=== PATIENT | male | born 1940 | race Hispanic/Latino ===

== ENCOUNTER 2020-07-18 18:04 | Inpatient (IN) | payer MEDICARE ==
[~2020-07-18] VITALS: Ht 167.6 cm; Wt 79.8 kg
[~2020-07-18 18:04] MED LIST: ALLO300T2 PO; CINA90TA PO; GABA-529 PO; HYDR-4457 PO; LANT1000 PO; LOSA100T58 PO; LUBI24CA2 PO; ONDA4TAB10 PO; RENAVITE PO; ROPI1TAB13 PO; SERT-438 PO; SEVE800T7 PO; SIMV-43 PO; TAMS0.4C32 PO
[2020-07-18 18:29] LABS: ABG BASE EXCESS -1.3 mmol/L (-2.0-3.0); ABG HCO3 29.3 mmol/L (21.0-28.0); ABG OXYGEN SATURATION 78.2 % (95.0-99.0); ABG PCO2 78 mmHg (35-48)
[2020-07-18] MEDS ORDERED: ASPIRIN 325 MG TABLET ONE (19:50)
[2020-07-18] MEDS ORDERED: ZOSYN 3.375GM+NS 50ML 50 ML IV ONE (19:50)
[2020-07-18 20:02] LABS: BASOPHILS % (AUTO) 0.5 % (0.0-5.0); LYMPHOCYTES % (AUTO) 2.3 % (21.0-51.0); MEAN CORPUSCULAR HEMOGLOBIN 33.7 pg (27.0-33.0); MEAN CORPUSCULAR HGB CONC 30.9 g/dL (32.0-36.0); MEAN CORPUSCULAR VOLUME 109.1 fL (79-99); MONOCYTES % (AUTO) 5.2 % (3.0-13.0); NEUTROPHILS % (AUTO) 90.3 % (40.0-77.0); NUCLEATED RED BLOOD CELLS 0.7 % (0.0-0.19); PLATELET COUNT (AUTO) 196 K/uL (130-400); RED CELL DISTRIBUTION WIDTH 17.2 % (11.0-15.5); WHITE BLOOD COUNT (AUTO) 16.7 K/uL (4.8-10.8)
[2020-07-18 20:26] LABS: ALBUMIN 4.3 g/dL (3.5-5.0); BILIRUBIN,TOTAL 0.8 mg/dL (0.2-1.0); CRP QUANTITATIVE 8.4 mg/L (0.00-9.0); POTASSIUM 4.5 mmol/L (3.5-5.1); TOTAL PROTEIN, SERUM 8.2 g/dL (6.0-8.3)
[2020-07-18 20:26] LABS: HEMATOCRIT 62.2 % (42-54)
[2020-07-18 20:29] LABS: INR 1.13 (0.85-1.15); PROTHROMBIN TIME 12.2 SEC (9.6-11.6)
[2020-07-18 20:31] LABS: PARTIAL THROMBOPLASTIN TIME 28.1 SEC (26.3-35.5)
[2020-07-18] MEDS ORDERED: FUROSEMIDE 40MG VIAL ONE (20:43)
[2020-07-18 20:52] LABS: B-TYPE NATRIURETIC PEPTIDE 624 pg/mL (0-100)
[2020-07-18 21:20] LABS: ABG BASE EXCESS -3.4 mmol/L (-2.0-3.0); ABG HCO3 26.7 mmol/L (21.0-28.0); ABG PCO2 72 mmHg (35-48)
[2020-07-18] MEDS ORDERED: VANCOMYCIN PROTOCOL PER PHARMACY IV SCH (23:30)
[2020-07-18] MEDS ORDERED: ALBUTEROL 0.083% 2.5 MG/3 ML INH IH SCH (23:30)
[2020-07-19] VITALS (8 sets, daily range): BP systolic 104–124; BP diastolic 48–78
[2020-07-19] MEDS ORDERED: ACETAMINOPHEN 325 MG TAB PO PRN ×3 (05:15→13:30)
[2020-07-19] MEDS ORDERED: ZOLPIDEM TARTRATE 5 MG TAB PO PRN (05:15)
[2020-07-19] MEDS: ZOSYN 3.375GM+NS 50ML 50 ML IV SCH ×2 (06:00→16:41)
[2020-07-19] MEDS: ALBUTEROL 0.083% 2.5 MG/3 ML INH IH SCH ×4 (06:00→18:00)
[2020-07-19] MEDS ORDERED: MIDODRINE HCL 5 MG TABLET ONE (06:44)
[2020-07-19] MEDS ORDERED: SEVE800T7 PO (08:22)
[2020-07-19] MEDS ORDERED: CINA90TA PO (08:22)
[2020-07-19] MEDS ORDERED: FOLI1TAB85 PO (08:23)
[2020-07-19] MEDS ORDERED: ALBU8.5H8 IH (08:34)
[2020-07-19] MEDS ORDERED: AEC81 PO (08:34)
[2020-07-19] MEDS ORDERED: FLUT16H NASAL (08:34)
[2020-07-19] MEDS ORDERED: ALBU2.5V2 IH (08:35)
[2020-07-19] MEDS ORDERED: BUSP7.5T7 PO (08:35)
[2020-07-19] MEDS ORDERED: FLUT1BLS3 IH (08:35)
[2020-07-19] MEDS ORDERED: LINA290C PO (08:35)
[2020-07-19] MEDS ORDERED: MIDO10TA PO (08:35)
[2020-07-19] MEDS ORDERED: LEVO500T90 PO (08:35)
[2020-07-19] MEDS ORDERED: CALC-131 PO (08:35)
[2020-07-19] MEDS ORDERED: PANT40TA54 PO (08:35)
[2020-07-19] MEDS ORDERED: CLIN-141 PO (08:35)
[2020-07-19] MEDS ORDERED: CPAP NASAL (08:35)
[2020-07-19] MEDS ORDERED: IPRA0.2S54 IH (08:35)
[2020-07-19] MEDS ORDERED: PRED10TA3 PO (08:35)
[2020-07-19] MEDS ORDERED: MIRT-93 PO (08:35)
[2020-07-19] MEDS ORDERED: NON-FORMULARY MEDICATION 1 EACH (Mirtazapine 30 MG) PO PRN (08:45)
[2020-07-19] MEDS ORDERED: MIDODRINE HCL 5 MG TABLET PO SCH (09:00)
[2020-07-19] MEDS ORDERED: FAMOTIDINE 20MG TAB PO SCH (09:00)
[2020-07-19] MEDS ORDERED: CINACALCET HCL 90 MG PO SCH (09:00)
[2020-07-19] MEDS ORDERED: NON-FORMULARY MEDICATION 1 EACH (Fluticasone/Umeclidin/Vilanter (Trelegy Ellipta 100-62.5- IH SCH (09:00)
[2020-07-19] MEDS ORDERED: BUSPIRONE HCL 7.5 MG PO SCH (09:00)
[2020-07-19] MEDS ORDERED: SEVELAMER CARBONATE PO SCH (09:00)
[2020-07-19] MEDS ORDERED: NON-FORMULARY MEDICATION 1 EACH (Linaclotide (Linzess) 290 MCG) PO SCH (09:00)
[2020-07-19] MEDS ORDERED: NON-FORMULARY MEDICATION 1 EACH (Vit B Cmplx 3/FA/Vit C/Biotin (Rena-Vite Rx Tablet) 1 EAC PO SCH (09:00)
[2020-07-19] MEDS: ENOXAPARIN SODIUM 30 MG/0.3 ML SQ SCH (09:15)
[2020-07-19] MEDS: PANTOPRAZOLE 40 MG TAB DR PO SCH (09:15)
[2020-07-19] MEDS: BUSPIRONE HCL 5 MG TABLET PO SCH (09:15)
[2020-07-19] MEDS: MIDODRINE HCL 5 MG TABLET PO SCH ×3 (09:15→21:50)
[2020-07-19] MEDS: FAMOTIDINE 20MG TAB PO SCH (09:16)
[2020-07-19] MEDS: Vitamin B Complex/Vit C/Folic Acid PO SCH (09:16)
[2020-07-19] MEDS: DEXAMETHASONE SOD PHOSPHATE 4 MG/ML 1ML VIAL IVP SCH ×3 (09:16→21:49)
[2020-07-19] MEDS: VANCOMYCIN 1G/250ML KIT 250 ML IV SCH ×2 (09:16→21:00)
[2020-07-19] MEDS: ASPIRIN 81 MG EC TAB PO SCH (09:16)
[2020-07-19] MEDS ORDERED: LANTHANUM CARBONATE 1000 MG PO SCH (12:00)
[2020-07-19] MEDS: SEVELAMER HCL 800 MG TABLET PO SCH ×2 (12:55→16:41)
[2020-07-19] MEDS ORDERED: LACTULOSE 20 GM/30 ML UDCUP PO PRN (13:30)
[2020-07-19] MEDS: MIRTAZAPINE 15 MG TABLET PO SCH (21:49)
[2020-07-19] MEDS: SIMVASTATIN 20 MG TABLET PO SCH (21:50)
[2020-07-19] MEDS: CINACALCET 30 MG TAB PO SCH (22:08)
[2020-07-19] MEDS ORDERED: DEXTROSE 5%-WATER 1,000 ML IV ONE (23:35)
[2020-07-20 03:45] VITALS: BP 142/64
[2020-07-20 04:03] LABS: HEMATOCRIT 55.6 % (42-54); MEAN CORPUSCULAR HGB CONC 30.6 g/dL (32.0-36.0); NUCLEATED RED BLOOD CELLS 0.2 % (0.0-0.19); RED BLOOD CELL COUNT(AUTO) 5.15 MIL/uL (4.50-6.20); RED CELL DISTRIBUTION WIDTH 17.1 % (11.0-15.5); WHITE BLOOD COUNT (AUTO) 19.8 K/uL (4.8-10.8)
[2020-07-20 04:13] LABS: CREATININE 7.8 mg/dL (0.5-1.5)
[2020-07-20] MEDS: ZOSYN 3.375GM+NS 50ML 50 ML IV SCH ×2 (05:45→17:23)
[2020-07-20] MEDS: ALBUTEROL 0.083% 2.5 MG/3 ML INH IH SCH ×4 (06:00→18:00)
[2020-07-20 07:03] VITALS: BP 133/67
[2020-07-20] MEDS: PANTOPRAZOLE 40 MG TAB DR PO SCH (08:56)
[2020-07-20] MEDS: BUSPIRONE HCL 5 MG TABLET PO SCH (08:56)
[2020-07-20] MEDS: ASPIRIN 81 MG EC TAB PO SCH (08:56)
[2020-07-20] MEDS: Vitamin B Complex/Vit C/Folic Acid PO SCH (08:56)
[2020-07-20] MEDS: DEXAMETHASONE SOD PHOSPHATE 4 MG/ML 1ML VIAL IVP SCH ×3 (08:56→20:21)
[2020-07-20] MEDS: SEVELAMER HCL 800 MG TABLET PO SCH ×3 (08:57→16:19)
[2020-07-20] MEDS: FAMOTIDINE 20MG TAB PO SCH (08:57)
[2020-07-20] MEDS: MIDODRINE HCL 5 MG TABLET PO SCH ×3 (08:57→20:21)
[2020-07-20] MEDS: ENOXAPARIN SODIUM 30 MG/0.3 ML SQ SCH (08:58)
[2020-07-20] MEDS: PYRIDOXINE PO SCH (09:00)
[2020-07-20] MEDS: LANTHANUM CARBONATE 1000 MG PO SCH (09:00)
[2020-07-20] MEDS: VIT B12 PO SCH (09:00)
[2020-07-20] MEDS: CALCIUM PO SCH (09:00)
[2020-07-20] MEDS: (Fluticasone/Umeclidin/Vilanter (Trelegy Ellipta 100-62.5- PO SCH (09:00)
[2020-07-20] MEDS: [UNRECOGNIZED DRUG - OTHER] PO SCH (09:00)
[2020-07-20] MEDS: CINACALCET 30 MG TAB PO SCH ×2 (09:58→20:21)
[2020-07-20] MEDS ORDERED: LACTULOSE 20 GM/30 ML UDCUP PO SCH (10:00)
[2020-07-20 11:36] VITALS: BP 156/81
[2020-07-20] MEDS ORDERED: LACTULOSE 20 GM/30 ML UDCUP PO PRN (11:45)
[2020-07-20 16:15] VITALS: BP 137/65
[2020-07-20 19:35] VITALS: BP 131/55
[2020-07-20] MEDS: MIRTAZAPINE 15 MG TABLET PO SCH (20:21)
[2020-07-20] MEDS: SIMVASTATIN 20 MG TABLET PO SCH (20:22)
[2020-07-20] MEDS: VANCOMYCIN 1G/250ML KIT 250 ML IV SCH (23:30)
[2020-07-20 23:57] VITALS: BP 130/68
[2020-07-21 04:09] VITALS: BP 131/60
[2020-07-21 05:16] LABS: ABG BASE EXCESS -4.1 mmol/L (-2.0-3.0); ABG HCO3 26.9 mmol/L (21.0-28.0); ABG OXYGEN SATURATION 94.1 % (95.0-99.0); ABG PCO2 79 mmHg (35-48)
[2020-07-21] MEDS: ZOSYN 3.375GM+NS 50ML 50 ML IV SCH ×2 (05:59→17:09)
[2020-07-21] MEDS: ALBUTEROL 0.083% 2.5 MG/3 ML INH IH SCH ×4 (06:00→18:00)
[2020-07-21 06:45] LABS: HEMATOCRIT 55.6 % (42-54); MEAN CORPUSCULAR HEMOGLOBIN 32.9 pg (27.0-33.0); MEAN CORPUSCULAR HGB CONC 30.4 g/dL (32.0-36.0); MEAN CORPUSCULAR VOLUME 108.4 fL (79-99); NUCLEATED RED BLOOD CELLS 0.5 % (0.0-0.19); RED BLOOD CELL COUNT(AUTO) 5.13 MIL/uL (4.50-6.20); RED CELL DISTRIBUTION WIDTH 17.2 % (11.0-15.5); WHITE BLOOD COUNT (AUTO) 22.1 K/uL (4.8-10.8)
[2020-07-21 06:52] LABS: CREATININE 6.5 mg/dL (0.5-1.5); PHOSPHORUS 7.8 mg/dL (2.5-4.9)
[2020-07-21 07:22] VITALS: BP 121/62
[2020-07-21] MEDS: [UNRECOGNIZED DRUG - OTHER] PO SCH (07:56)
[2020-07-21] MEDS: CALCIUM PO SCH (07:56)
[2020-07-21] MEDS: PYRIDOXINE PO SCH (07:56)
[2020-07-21] MEDS: VIT B12 PO SCH (07:56)
[2020-07-21] MEDS: LANTHANUM CARBONATE 1000 MG PO SCH (07:57)
[2020-07-21] MEDS: (Fluticasone/Umeclidin/Vilanter (Trelegy Ellipta 100-62.5- PO SCH (07:57)
[2020-07-21] MEDS: SEVELAMER HCL 800 MG TABLET PO SCH ×3 (08:13→17:09)
[2020-07-21] MEDS: PANTOPRAZOLE 40 MG TAB DR PO SCH (08:14)
[2020-07-21] MEDS: DEXAMETHASONE SOD PHOSPHATE 4 MG/ML 1ML VIAL IVP SCH ×3 (08:14→21:17)
[2020-07-21] MEDS: ASPIRIN 81 MG EC TAB PO SCH (08:15)
[2020-07-21] MEDS: MIDODRINE HCL 5 MG TABLET PO SCH ×3 (08:15→21:17)
[2020-07-21] MEDS: Vitamin B Complex/Vit C/Folic Acid PO SCH (08:15)
[2020-07-21] MEDS: ENOXAPARIN SODIUM 30 MG/0.3 ML SQ SCH (08:16)
[2020-07-21] MEDS: CINACALCET 30 MG TAB PO SCH ×2 (09:00→21:18)
[2020-07-21 10:12] LABS: HEPATITIS A ANTIBODY IGM Negative (Negative); HEPATITIS B CORE IGM Negative (Negative); HEPATITIS Bs ANTIGEN SCREEN P Negative (Negative)
[2020-07-21 11:37] VITALS: BP 133/61
[2020-07-21] MEDS ORDERED: BISACODYL 10 MG SUPP.RECT RC SCH (12:00)
[2020-07-21] MEDS ORDERED: BISACODYL 10 MG SUPP.RECT RC PRN (12:00)
[2020-07-21] MEDS ORDERED: LORAZEPAM 2 MG/ML 1 ML VIAL IVP PRN (12:30)
[2020-07-21 13:44] LABS: ABG BASE EXCESS -5.4 mmol/L (-2.0-3.0); ABG HCO3 25.1 mmol/L (21.0-28.0); ABG OXYGEN SATURATION 94.7 % (95.0-99.0); ABG PCO2 73 mmHg (35-48)
[2020-07-21 16:38] VITALS: BP 132/56
[2020-07-21] MEDS: VANCOMYCIN 1G/250ML KIT 250 ML IV SCH (19:38)
[2020-07-21 19:46] VITALS: BP 121/57
[2020-07-21] MEDS ORDERED: LACTULOSE 20 GM/30 ML UDCUP NG SCH (21:00)
[2020-07-21] MEDS: MIRTAZAPINE 15 MG TABLET PO SCH (21:17)
[2020-07-21] MEDS: SIMVASTATIN 20 MG TABLET PO SCH (21:18)
[2020-07-21 23:56] VITALS: BP 141/77
[2020-07-22] MEDS: ALBUTEROL 0.083% 2.5 MG/3 ML INH IH SCH ×4 (03:12→18:28)
[2020-07-22 04:51] LABS: HEMATOCRIT 55.4 % (42-54); MEAN CORPUSCULAR HEMOGLOBIN 32.6 pg (27.0-33.0); MEAN CORPUSCULAR HGB CONC 30.1 g/dL (32.0-36.0); NUCLEATED RED BLOOD CELLS 0.4 % (0.0-0.19); RED BLOOD CELL COUNT(AUTO) 5.13 MIL/uL (4.50-6.20); RED CELL DISTRIBUTION WIDTH 17.2 % (11.0-15.5); WHITE BLOOD COUNT (AUTO) 22.5 K/uL (4.8-10.8)
[2020-07-22 04:57] LABS: ABG BASE EXCESS -6.3 mmol/L (-2.0-3.0); ABG OXYGEN SATURATION 97.4 % (95.0-99.0); ABG PCO2 62 mmHg (35-48)
[2020-07-22 05:02] LABS: MAGNESIUM 3.1 mg/dL (1.80-2.40); POTASSIUM 5.2 mmol/L (3.5-5.1)
[2020-07-22 05:05] LABS: CREATININE 7.9 mg/dL (0.5-1.5)
[2020-07-22] MEDS: ZOSYN 3.375GM+NS 50ML 50 ML IV SCH ×2 (05:48→18:17)
[2020-07-22 07:17] VITALS: BP 125/62
[2020-07-22] MEDS: LANTHANUM CARBONATE 1000 MG PO SCH (09:00)
[2020-07-22] MEDS: PYRIDOXINE PO SCH (09:00)
[2020-07-22] MEDS: CALCIUM PO SCH (09:00)
[2020-07-22] MEDS: (Fluticasone/Umeclidin/Vilanter (Trelegy Ellipta 100-62.5- PO SCH (09:00)
[2020-07-22] MEDS: VIT B12 PO SCH (09:00)
[2020-07-22] MEDS: PANTOPRAZOLE 40 MG TAB DR PO SCH (09:00)
[2020-07-22] MEDS: [UNRECOGNIZED DRUG - OTHER] PO SCH (09:00)
[2020-07-22] MEDS: ASPIRIN 81 MG EC TAB PO SCH (09:54)
[2020-07-22] MEDS: MIDODRINE HCL 5 MG TABLET PO SCH ×2 (09:55→14:07)
[2020-07-22] MEDS: CINACALCET 30 MG TAB PO SCH ×2 (09:55→21:00)
[2020-07-22] MEDS: DEXAMETHASONE SOD PHOSPHATE 4 MG/ML 1ML VIAL IVP SCH ×2 (09:55→14:07)
[2020-07-22] MEDS: SEVELAMER HCL 800 MG TABLET PO SCH ×3 (09:59→18:16)
[2020-07-22] MEDS: ENOXAPARIN SODIUM 30 MG/0.3 ML SQ SCH (09:59)
[2020-07-22 10:59] VITALS: BP 130/69
[2020-07-22] MEDS: Vitamin B Complex/Vit C/Folic Acid PO SCH (11:36)
[2020-07-22] MEDS: LACTULOSE 20 GM/30 ML UDCUP NG SCH (11:46)
[2020-07-22] MEDS ORDERED: BISACODYL 10 MG SUPP.RECT RC SCH (12:00)
[2020-07-22] MEDS: PHARMACY COMMUNICATION MISC SCH ×2 (12:15→16:15)
[2020-07-22 16:41] VITALS: BP 119/58
[2020-07-22 20:07] VITALS: BP 124/57
[2020-07-22] MEDS ORDERED: RANITIDINE HCL 15 MG/1 ML NG SCH (22:00)
[2020-07-22 23:46] VITALS: BP 127/62
[2020-07-23] MEDS: ALBUTEROL 0.083% 2.5 MG/3 ML INH IH SCH ×3 (00:19→11:31)
[2020-07-23] MEDS: VANCOMYCIN 1G/250ML KIT 250 ML IV SCH ×2 (00:28→22:26)
[2020-07-23] MEDS: MIDODRINE HCL 5 MG TABLET PO SCH ×4 (00:30→23:18)
[2020-07-23] MEDS: SIMVASTATIN 20 MG TABLET PO SCH ×2 (00:31→22:27)
[2020-07-23] MEDS: MIRTAZAPINE 15 MG TABLET PO SCH ×2 (00:39→22:27)
[2020-07-23] MEDS: LACTULOSE 20 GM/30 ML UDCUP NG SCH ×3 (00:47→22:26)
[2020-07-23] MEDS: DEXAMETHASONE SOD PHOSPHATE 4 MG/ML 1ML VIAL IVP SCH ×4 (00:47→22:26)
[2020-07-23 04:04] VITALS: BP 118/63
[2020-07-23 05:04] LABS: ABG BASE EXCESS -6.5 mmol/L (-2.0-3.0); ABG HCO3 23.4 mmol/L (21.0-28.0); ABG OXYGEN SATURATION 84.7 % (95.0-99.0); ABG PCO2 67 mmHg (35-48)
[2020-07-23 05:23] LABS: HEMATOCRIT 53.4 % (42-54); MEAN CORPUSCULAR HEMOGLOBIN 32.8 pg (27.0-33.0); MEAN CORPUSCULAR HGB CONC 30.5 g/dL (32.0-36.0); MEAN CORPUSCULAR VOLUME 107.4 fL (79-99); NUCLEATED RED BLOOD CELLS 0.3 % (0.0-0.19); RED BLOOD CELL COUNT(AUTO) 4.97 MIL/uL (4.50-6.20); RED CELL DISTRIBUTION WIDTH 17.5 % (11.0-15.5); WHITE BLOOD COUNT (AUTO) 22.9 K/uL (4.8-10.8)
[2020-07-23 06:00] LABS: ALBUMIN 3.1 g/dL (3.5-5.0); BILIRUBIN,TOTAL 0.6 mg/dL (0.2-1.0); PHOSPHORUS 8.8 mg/dL (2.5-4.9); POTASSIUM 5.2 mmol/L (3.5-5.1); TOTAL PROTEIN, SERUM 6.1 g/dL (6.0-8.3)
[2020-07-23 06:10] LABS: CREATININE 9.8 mg/dL (0.5-1.5)
[2020-07-23] MEDS: ZOSYN 3.375GM+NS 50ML 50 ML IV SCH ×2 (07:03→18:20)
[2020-07-23] MEDS: ASPIRIN 81 MG EC TAB PO SCH (07:59)
[2020-07-23] MEDS: Vitamin B Complex/Vit C/Folic Acid PO SCH (07:59)
[2020-07-23 08:00] VITALS: BP 103/49
[2020-07-23] MEDS: SEVELAMER HCL 800 MG TABLET PO SCH ×2 (08:00→18:27)
[2020-07-23] MEDS: CINACALCET 30 MG TAB PO SCH ×2 (08:01→22:29)
[2020-07-23] MEDS: PHARMACY COMMUNICATION MISC SCH ×2 (08:15→12:15)
[2020-07-23] MEDS: (Fluticasone/Umeclidin/Vilanter (Trelegy Ellipta 100-62.5- PO SCH (09:00)
[2020-07-23] MEDS: VIT B12 PO SCH (09:00)
[2020-07-23] MEDS: [UNRECOGNIZED DRUG - OTHER] PO SCH (09:00)
[2020-07-23] MEDS: CALCIUM PO SCH (09:00)
[2020-07-23] MEDS: ENOXAPARIN SODIUM 30 MG/0.3 ML SQ SCH (09:00)
[2020-07-23] MEDS: LANTHANUM CARBONATE 1000 MG PO SCH (09:00)
[2020-07-23] MEDS: PYRIDOXINE PO SCH (09:00)
[2020-07-23 11:48] VITALS: BP 124/47
[2020-07-23 16:00] VITALS: BP 134/61
[2020-07-23 20:28] VITALS: BP 125/60
[2020-07-23 23:46] VITALS: BP 123/63
[2020-07-24] MEDS: ALBUTEROL 0.083% 2.5 MG/3 ML INH IH SCH ×3 (00:13→11:12)
[2020-07-24 03:46] VITALS: BP 145/62
[2020-07-24 04:17] LABS: ABG BASE EXCESS 0.7 mmol/L (-2.0-3.0); ABG HCO3 30.2 mmol/L (21.0-28.0); ABG OXYGEN SATURATION 92.2 % (95.0-99.0); ABG PCO2 71 mmHg (35-48)
[2020-07-24 04:19] LABS: HEMATOCRIT 53.4 % (42-54); MEAN CORPUSCULAR HEMOGLOBIN 33.2 pg (27.0-33.0); MEAN CORPUSCULAR HGB CONC 30.9 g/dL (32.0-36.0); MEAN CORPUSCULAR VOLUME 107.4 fL (79-99); NUCLEATED RED BLOOD CELLS 0.4 % (0.0-0.19); RED BLOOD CELL COUNT(AUTO) 4.97 MIL/uL (4.50-6.20); RED CELL DISTRIBUTION WIDTH 17.7 % (11.0-15.5); WHITE BLOOD COUNT (AUTO) 27.8 K/uL (4.8-10.8)
[2020-07-24 04:40] LABS: ALBUMIN 3.3 g/dL (3.5-5.0); BILIRUBIN,DIRECT 0.2 mg/dL (0.0-0.3); BILIRUBIN,TOTAL 0.9 mg/dL (0.2-1.0); CREATININE 6.6 mg/dL (0.5-1.5); POTASSIUM 4.5 mmol/L (3.5-5.1); TOTAL PROTEIN, SERUM 6.4 g/dL (6.0-8.3)
[2020-07-24 07:58] VITALS: BP 126/60
[2020-07-24] MEDS: CALCIUM PO SCH (09:00)
[2020-07-24] MEDS: [UNRECOGNIZED DRUG - OTHER] PO SCH (09:00)
[2020-07-24] MEDS: (Fluticasone/Umeclidin/Vilanter (Trelegy Ellipta 100-62.5- PO SCH (09:00)
[2020-07-24] MEDS: VIT B12 PO SCH (09:00)
[2020-07-24] MEDS: PYRIDOXINE PO SCH (09:00)
[2020-07-24] MEDS: LANTHANUM CARBONATE 1000 MG PO SCH (09:00)
[2020-07-24] MEDS: LACTULOSE 20 GM/30 ML UDCUP NG SCH ×3 (09:48→21:41)
[2020-07-24] MEDS: Vitamin B Complex/Vit C/Folic Acid PO SCH (09:48)
[2020-07-24] MEDS: CINACALCET 30 MG TAB PO SCH ×2 (09:48→21:41)
[2020-07-24] MEDS: SEVELAMER HCL 800 MG TABLET PO SCH ×3 (09:48→18:09)
[2020-07-24] MEDS: DEXAMETHASONE SOD PHOSPHATE 4 MG/ML 1ML VIAL IVP SCH (09:48)
[2020-07-24] MEDS: ENOXAPARIN SODIUM 30 MG/0.3 ML SQ SCH (09:49)
[2020-07-24] MEDS: MIDODRINE HCL 5 MG TABLET PO SCH ×3 (09:49→21:41)
[2020-07-24] MEDS: ASPIRIN 81 MG EC TAB PO SCH (09:49)
[2020-07-24] MEDS: IPRATROPIUM/ALBUTEROL SULFATE 3 ML SOLUTION IH SCH ×2 (11:40→19:13)
[2020-07-24 11:48] VITALS: BP 117/62
[2020-07-24 16:00] VITALS: BP 139/65
[2020-07-24] MEDS: PHARMACY COMMUNICATION MISC SCH ×2 (16:15→20:15)
[2020-07-24] MEDS: ZOSYN 3.375GM+NS 50ML 50 ML IV SCH (18:14)
[2020-07-24] MEDS: BUDESONIDE 0.5 MG/2 ML INH IH SCH (19:13)
[2020-07-24 19:50] VITALS: BP 128/54
[2020-07-24] MEDS: MIRTAZAPINE 15 MG TABLET PO SCH (21:41)
[2020-07-24] MEDS: SIMVASTATIN 20 MG TABLET PO SCH (21:41)
[2020-07-24] MEDS: VANCOMYCIN 1G/250ML KIT 250 ML IV SCH (22:03)
[2020-07-25] VITALS (7 sets, daily range): BP systolic 105–146; BP diastolic 45–66
[2020-07-25] MEDS: IPRATROPIUM/ALBUTEROL SULFATE 3 ML SOLUTION IH SCH ×4 (00:02→19:06)
[2020-07-25] MEDS: PHARMACY COMMUNICATION MISC SCH ×5 (00:15→16:15)
[2020-07-25 05:20] LABS: BASOPHILS % (AUTO) 0.2 % (0.0-5.0); HEMATOCRIT 51.5 % (42-54); LYMPHOCYTES % (AUTO) 1.8 % (21.0-51.0); MEAN CORPUSCULAR HEMOGLOBIN 32.5 pg (27.0-33.0); MEAN CORPUSCULAR HGB CONC 30.5 g/dL (32.0-36.0); MEAN CORPUSCULAR VOLUME 106.6 fL (79-99); MONOCYTES % (AUTO) 5.3 % (3.0-13.0); NEUTROPHILS % (AUTO) 90.9 % (40.0-77.0); NUCLEATED RED BLOOD CELLS 0.5 % (0.0-0.19); PLATELET COUNT (AUTO) 117 K/uL (130-400); RED BLOOD CELL COUNT(AUTO) 4.83 MIL/uL (4.50-6.20); RED CELL DISTRIBUTION WIDTH 17.2 % (11.0-15.5)
[2020-07-25 05:31] LABS: POTASSIUM 4.4 mmol/L (3.5-5.1)
[2020-07-25 06:41] LABS: ABG BASE EXCESS -2.9 mmol/L (-2.0-3.0); ABG HCO3 26.8 mmol/L (21.0-28.0); ABG OXYGEN SATURATION 93.9 % (95.0-99.0); ABG PCO2 69 mmHg (35-48)
[2020-07-25] MEDS: BUDESONIDE 0.5 MG/2 ML INH IH SCH ×2 (07:09→19:06)
[2020-07-25] MEDS: ZOSYN 3.375GM+NS 50ML 50 ML IV SCH (07:46)
[2020-07-25] MEDS: SEVELAMER HCL 800 MG TABLET PO SCH ×3 (08:00→16:38)
[2020-07-25] MEDS: CALCIUM PO SCH (09:00)
[2020-07-25] MEDS: [UNRECOGNIZED DRUG - OTHER] PO SCH (09:00)
[2020-07-25] MEDS: PYRIDOXINE PO SCH (09:00)
[2020-07-25] MEDS: (Fluticasone/Umeclidin/Vilanter (Trelegy Ellipta 100-62.5- PO SCH (09:00)
[2020-07-25] MEDS: VIT B12 PO SCH (09:00)
[2020-07-25] MEDS: LANTHANUM CARBONATE 1000 MG PO SCH (09:00)
[2020-07-25] MEDS: MIDODRINE HCL 5 MG TABLET PO SCH ×3 (09:44→22:02)
[2020-07-25] MEDS: ENOXAPARIN SODIUM 30 MG/0.3 ML SQ SCH (11:53)
[2020-07-25] MEDS: CINACALCET 30 MG TAB PO SCH ×2 (11:54→22:02)
[2020-07-25] MEDS: ASPIRIN 81 MG EC TAB PO SCH (11:55)
[2020-07-25] MEDS: Vitamin B Complex/Vit C/Folic Acid PO SCH (11:55)
[2020-07-25] MEDS: PREDNISONE 20 MG TABLET PO SCH (11:55)
[2020-07-25] MEDS: SODIUM BICARBONATE 650 MG TAB PO SCH ×2 (11:55→17:16)
[2020-07-25 14:53] LABS: ABG BASE EXCESS 3.5 mmol/L (-2.0-3.0); ABG HCO3 33.6 mmol/L (21.0-28.0); ABG OXYGEN SATURATION 98.1 % (95.0-99.0); ABG PCO2 78 mmHg (35-48)
[2020-07-25] MEDS ORDERED: LEVOFLOXACIN 500 MG TABLET NG ONE (16:00)
[2020-07-25] MEDS ORDERED: LEVOFLOXACIN 500 MG TABLET ONE (17:04)
[2020-07-25] MEDS: MIRTAZAPINE 15 MG TABLET PO SCH (22:02)
[2020-07-25] MEDS: SIMVASTATIN 20 MG TABLET PO SCH (22:02)
[2020-07-25] MEDS: LACTULOSE 20 GM/30 ML UDCUP NG SCH (22:02)
[2020-07-26] MEDS: IPRATROPIUM/ALBUTEROL SULFATE 3 ML SOLUTION IH SCH ×4 (00:20→19:26)
[2020-07-26 04:48] LABS: HEMATOCRIT 52.8 % (42-54); MEAN CORPUSCULAR HEMOGLOBIN 33.6 pg (27.0-33.0); MEAN CORPUSCULAR HGB CONC 30.5 g/dL (32.0-36.0); MEAN CORPUSCULAR VOLUME 110.2 fL (79-99); NUCLEATED RED BLOOD CELLS 0.6 % (0.0-0.19); PLATELET COUNT (AUTO) 104 K/uL (130-400); RED BLOOD CELL COUNT(AUTO) 4.79 MIL/uL (4.50-6.20); RED CELL DISTRIBUTION WIDTH 17.6 % (11.0-15.5); WHITE BLOOD COUNT (AUTO) 24.7 K/uL (4.8-10.8)
[2020-07-26 04:59] LABS: CREATININE 5.4 mg/dL (0.5-1.5); POTASSIUM 5.4 mmol/L (3.5-5.1)
[2020-07-26 06:08] VITALS: BP 115/40
[2020-07-26] MEDS: BUDESONIDE 0.5 MG/2 ML INH IH SCH ×2 (06:44→19:42)
[2020-07-26 08:00] VITALS: BP 134/52
[2020-07-26] MEDS: PYRIDOXINE PO SCH (09:00)
[2020-07-26] MEDS: CALCIUM PO SCH (09:00)
[2020-07-26] MEDS: VIT B12 PO SCH (09:00)
[2020-07-26] MEDS: [UNRECOGNIZED DRUG - OTHER] PO SCH (09:00)
[2020-07-26] MEDS: LANTHANUM CARBONATE 1000 MG PO SCH (09:00)
[2020-07-26] MEDS: (Fluticasone/Umeclidin/Vilanter (Trelegy Ellipta 100-62.5- PO SCH (09:00)
[2020-07-26] MEDS: SODIUM BICARBONATE 650 MG TAB PO SCH ×3 (09:57→17:00)
[2020-07-26] MEDS: Vitamin B Complex/Vit C/Folic Acid PO SCH (09:57)
[2020-07-26] MEDS: PREDNISONE 20 MG TABLET PO SCH (09:57)
[2020-07-26] MEDS: SEVELAMER HCL 800 MG TABLET PO SCH ×3 (09:57→17:00)
[2020-07-26] MEDS: MIDODRINE HCL 5 MG TABLET PO SCH ×3 (09:57→20:33)
[2020-07-26] MEDS: CINACALCET 30 MG TAB PO SCH ×2 (09:57→20:22)
[2020-07-26] MEDS: ASPIRIN 81 MG EC TAB PO SCH (09:57)
[2020-07-26] MEDS: ENOXAPARIN SODIUM 30 MG/0.3 ML SQ SCH (09:58)
[2020-07-26] MEDS: LORAZEPAM 0.5 MG TABLET NG PRN (10:17)
[2020-07-26] MEDS: MORPHINE 2 MG SYG IVP PRN ×3 (12:07→20:23)
[2020-07-26 12:14] VITALS: BP 128/46
[2020-07-26 16:42] VITALS: BP 128/53
[2020-07-26] MEDS: MIRTAZAPINE 15 MG TABLET PO SCH (20:22)
[2020-07-26] MEDS: SIMVASTATIN 20 MG TABLET PO SCH (20:22)
[2020-07-26] MEDS: LACTULOSE 20 GM/30 ML UDCUP NG SCH (20:34)
[2020-07-26 20:42] VITALS: BP 102/43
[2020-07-27 00:02] VITALS: BP 92/45
[2020-07-27] MEDS: IPRATROPIUM/ALBUTEROL SULFATE 3 ML SOLUTION IH SCH ×2 (00:22→06:51)
[2020-07-27] MEDS ORDERED: PREDNISONE 20 MG TABLET NG ONE (05:15)
[2020-07-27] MEDS ORDERED: MIDODRINE HCL 5 MG TABLET NG ONE (05:15)
[2020-07-27 06:10] VITALS: BP 82/23
[2020-07-27] MEDS: BUDESONIDE 0.5 MG/2 ML INH IH SCH (06:51)
[2020-07-27 08:14] VITALS: BP 86/32
[2020-07-27] MEDS: LORAZEPAM 0.5 MG TABLET NG PRN (09:15)
[2020-07-27] MEDS: MIDODRINE HCL 5 MG TABLET PO SCH (09:15)
[2020-07-27] MEDS: MORPHINE 2 MG SYG IVP PRN (09:15)
[2020-07-27] MEDS ORDERED: MORPHINE 2 MG SYG IVP PRN (10:45)
[2020-07-27] MEDS ORDERED: LORAZEPAM 2 MG/ML 1 ML VIAL IVP PRN (10:45)
[2020-07-27] MEDS: MORPHINE 4 MG SYG IV PRN ×2 (10:49→15:11)
[2020-07-27 12:29] VITALS: BP 60/17
[2020-07-27] MEDS ORDERED: LEVOFLOXACIN 500 MG TABLET NG SCH (16:00)
[2020-07-27 16:25] VITALS: BP 50/18
== END 2020-07-27 15:59 | disposition expired | DRG 177 ==
LOC: EDH 18:04 → EDHIP 21:25 → 2DH 07-19 12:39 → 4CH 07-19 23:31
PROVIDERS: ADMIT Internal Medicine; ATTEND Internal Medicine
PROC: 5A09357 Assistance with Respiratory Ventilation, Less than 24 Consecutive Hours, Continuous Positive Airway Pressure (ICD-10-PCS; 2020-07-19)
PROC: 5A1D70Z Performance of Urinary Filtration, Intermittent, Less than 6 Hours Per Day (ICD-10-PCS; principal; 2020-07-20)
PROC: 5A09457 Assistance with Respiratory Ventilation, 24-96 Consecutive Hours, Continuous Positive Airway Pressure (ICD-10-PCS; 2020-07-21)
PROC: 5A1D70Z Performance of Urinary Filtration, Intermittent, Less than 6 Hours Per Day (ICD-10-PCS; 2020-07-23)
PROC: 5A09357 Assistance with Respiratory Ventilation, Less than 24 Consecutive Hours, Continuous Positive Airway Pressure (ICD-10-PCS; 2020-07-23)
PROC: 5A09457 Assistance with Respiratory Ventilation, 24-96 Consecutive Hours, Continuous Positive Airway Pressure (ICD-10-PCS; 2020-07-24)
PROC: 5A1D70Z Performance of Urinary Filtration, Intermittent, Less than 6 Hours Per Day (ICD-10-PCS; 2020-07-25)
DX: J69.0 Pneumonitis due to inhalation of food and vomit (principal); N18.6 End stage renal disease; J96.21 Acute and chronic respiratory failure with hypoxia; J96.22 Acute and chronic respiratory failure with hypercapnia; E87.2 Acidosis; I13.11 Hypertensive heart and chronic kidney disease without heart failure, with stage 5 chronic kidney disease, or end stage renal disease; Q61.2 Polycystic kidney, adult type; J98.11 Atelectasis; J91.8 Pleural effusion in other conditions classified elsewhere; J44.0 Chronic obstructive pulmonary disease with (acute) lower respiratory infection; F32.1 Major depressive disorder, single episode, moderate; N13.8 Other obstructive and reflux uropathy; D45 Polycythemia vera; Z66 Do not resuscitate; Z51.5 Encounter for palliative care; K59.00 Constipation, unspecified; G25.81 Restless legs syndrome; K21.9 Gastro-esophageal reflux disease without esophagitis; D63.8 Anemia in other chronic diseases classified elsewhere; G47.33 Obstructive sleep apnea (adult) (pediatric); J84.10 Pulmonary fibrosis, unspecified; E11.22 Type 2 diabetes mellitus with diabetic chronic kidney disease; E11.51 Type 2 diabetes mellitus with diabetic peripheral angiopathy without gangrene; E21.3 Hyperparathyroidism, unspecified; E78.5 Hyperlipidemia, unspecified; Z20.822 Contact with and (suspected) exposure to COVID-19; G89.29 Other chronic pain; I08.0 Rheumatic disorders of both mitral and aortic valves; I25.10 Atherosclerotic heart disease of native coronary artery without angina pectoris; Z96.653 Presence of artificial knee joint, bilateral; Y95 Nosocomial condition; N40.1 Benign prostatic hyperplasia with lower urinary tract symptoms; I70.0 Atherosclerosis of aorta; D72.829 Elevated white blood cell count, unspecified; T38.0X5A Adverse effect of glucocorticoids and synthetic analogues, initial encounter; I27.20 Pulmonary hypertension, unspecified; M54.5 Low back pain; M10.9 Gout, unspecified; Z86.16 Personal history of COVID-19; Z95.1 Presence of aortocoronary bypass graft; Z99.2 Dependence on renal dialysis; Z91.19 Patient's noncompliance with other medical treatment and regimen; Z87.891 Personal history of nicotine dependence; Z87.01 Personal history of pneumonia (recurrent); Z79.82 Long term (current) use of aspirin; Z79.899 Other long term (current) drug therapy; Y92.89 Other specified places as the place of occurrence of the external cause
CPT/HCPCS: 36415; 36600; 70450; 71045; 71250; 80048; 80053; 80074; 80076; 82010; 82140; 82550; 82803; 82948; 83605; 83735; 83880; 84100; 84145; 84484; 85025; 85027; 85610; 85730; 86140; 87040; 87426; 90935; 92610; 93005; 93306; 93356; 94640; 94660; G0378; J1100; J1650; J1940; J2060; J2270; J2543; J3370; J7070; U0003

== ENCOUNTER 2020-07-27 16:00 | Inpatient (IN) | payer OTHER ==
[~2020-07-27 16:00] MED LIST changes: +AEC81 PO; +ALBU2.5V2 IH; +ALBU8.5H8 IH; -ALLO300T2 PO; +BUSP7.5T7 PO; +CALC-131 PO; +CLIN300C10 PO; +CPAP NASAL; +FLUT16H NASAL; +FLUT1BLS3 IH; +FOLI1TAB85 PO; -GABA-529 PO; -HYDR-4457 PO; +IPRA0.2S54 IH; +LEVO500T89 PO; +LINA290C PO; -LOSA100T58 PO; -LUBI24CA2 PO; +MIDO10TA PO; +MIRT30TA6 PO; +PANT40TA54 PO; +PRED10TA3 PO; -RENAVITE PO; -ROPI1TAB13 PO; -SERT-438 PO; -TAMS0.4C32 PO
[2020-07-27] MEDS ORDERED: MORPHINE SULFATE 2 MG/ML 1ML SYG IVP PRN (17:15)
[2020-07-27] MEDS ORDERED: ACETAMINOPHEN 650 MG SUPPOSITORY RC PRN (17:15)
[2020-07-27] MEDS ORDERED: LORAZEPAM 2 MG/ML 1 ML VIAL IVP PRN (17:15)
[2020-07-27] MEDS ORDERED: BISACODYL 10 MG SUPP.RECT RC PRN (17:15)
[2020-07-27] MEDS ORDERED: ONDANSETRON HCL 4 MG/2 ML VIAL IVP PRN (17:15)
[2020-07-27] MEDS ORDERED: GLYCOPYRROLATE 0.2 MG/ML 5 ML VIAL IVP PRN (17:30)
== END 2020-07-27 18:58 | disposition expired | DRG 189 ==
LOC: 4CH 16:00
PROVIDERS: ADMIT Internal Medicine; ATTEND Internal Medicine
DX: J96.21 Acute and chronic respiratory failure with hypoxia (principal); J18.9 Pneumonia, unspecified organism; N18.6 End stage renal disease; J91.8 Pleural effusion in other conditions classified elsewhere; I12.0 Hypertensive chronic kidney disease with stage 5 chronic kidney disease or end stage renal disease; E11.22 Type 2 diabetes mellitus with diabetic chronic kidney disease; Z51.5 Encounter for palliative care; Z99.2 Dependence on renal dialysis
CPT/HCPCS: G0378